=== PATIENT | male | born 1985 | race Caucasian/White ===

== ENCOUNTER 2024-07-03 10:31 | Inpatient (IN) ==
[2024-07-03 12:12] LABS: INR 1.11 (0.85-1.14)
[2024-07-03 12:20] LABS: Albumin 3.9 g/dL (3.5-5.7); Albumin/Globulin Ratio 1.3 (1-3); Calcium 8.8 mg/dL (8.6-10.3); Creatinine, Serum 0.81 mg/dL (0.67-1.17); Globulin 2.9 g/dL (2-4); Potassium 3.8 mmol/L (3.5-5.0); Total Bilirubin 0.7 mg/dL (0.2-1.0); Total Protein 6.8 g/dL (6.4-8.9); eGFR CKD-EPI 116.5 (>60)
[2024-07-03 12:39] LABS: Mean Corpuscular Hemoglobin 30.8 pg (27-33); Mean Corpuscular Hgb Conc 35.2 g/dL (31-36); Mean Corpuscular Volume 87.6 fL (80-97); Red Blood Count 4.56 10^6/uL (4.06-5.63); Red Cell Distribution Width 13.4 % (12-17); White Blood Count 11.6 10^3/uL (3.6-10.2)
[2024-07-03 13:03] LABS: ABS Basophils 0.1 10^3/uL (0.0-0.1); ABS Eosinophils 0.4 10^3/uL (0.0-0.5); ABS Lymphocytes 2.1 10^3/uL (1.0-4.8); ABS Monocytes 0.8 10^3/uL (0.0-1.1); ABS Neutrophils 8.1 10^3/uL (1.5-7.6); Eosinophil % 3.4 %; Large Platelets Present; Lymphocyte % 18.1 %; Mean Platelet Volume 7.6 fL (7.5-11.2); Platelet Count 357 10^3/uL (150-450)
[2024-07-03 13:29] LABS: High Sensitivity Troponin 1 Hr 6 pg/mL (<20)
[2024-07-03] MEDS ORDERED: Senna TAB 8.6 mg TAB PO PRN (14:10)
[2024-07-03] MEDS: Iohexol 350 (CONTRAST) 500 ML MDV IV ONE (14:37)
[2024-07-03] MEDS: Albuterol/Ipratropium NEB.SOL (2.5/0.5 MG) 3 ML NEB.SOLN INH SCH (15:09)
[2024-07-03] MEDS: cefTRIAXone 1 gm/50 mL D5W 1 GM/50 ML BAG IV SCH (15:57)
[2024-07-03] MEDS: Lactated Ringers 1000 ml BAG 1,000 ML IV SCH ×2 (16:44→16:47)
[2024-07-03] MEDS: Enoxaparin 40 MG/0.4 ML SYR SUBCUT SCH (16:48)
[2024-07-03] MEDS: Famotidine IV 10 MG/ML 2 ml VIAL (20 mg) IV SLOW PU ONE (16:48)
[2024-07-03] MEDS: Nicotine PATCH 14 MG/24 HR PATCH TRANSDERM SCH (16:49)
[2024-07-03] MEDS: Nicotine GUM 2MG FRUIT FLAVOR PO PRN (17:02)
[2024-07-03] MEDS: Azithromycin 500 mg/250 ml NS 500 MG/250 ML BAG IVPB SCH (18:00)
[2024-07-03 18:02] LABS: C Reactive Protein 22.25 mg/L (<8.01)
[2024-07-04 06:23] LABS: Calcium 8.4 mg/dL (8.6-10.3); Creatinine, Serum 0.79 mg/dL (0.67-1.17); Magnesium 2.3 mg/dL (1.9-2.7); Potassium 3.9 mmol/L (3.5-5.0); eGFR CKD-EPI 117.3 (>60)
[2024-07-04 06:40] LABS: ABS Basophils 0.2 10^3/uL (0.0-0.1); ABS Eosinophils 0.1 10^3/uL (0.0-0.5); ABS Lymphocytes 2.3 10^3/uL (1.0-4.8); ABS Monocytes 0.9 10^3/uL (0.0-1.1); ABS Neutrophils 8.6 10^3/uL (1.5-7.6); ABS Nucleated RBC 0.02 10^3/ul; Eosinophil % 1.1 %; Hematocrit 36.9 % (38-53); Lymphocyte % 18.6 %; Mean Corpuscular Hemoglobin 31.1 pg (27-33); Mean Corpuscular Hgb Conc 35.3 g/dL (31-36); Mean Corpuscular Volume 88.1 fL (80-97); Mean Platelet Volume 7.6 fL (7.5-11.2); Nucleated Red Blood Cells % 0.2 %/100WBC (0.0-0.8); Platelet Count 329 10^3/uL (150-450); Red Blood Count 4.19 10^6/uL (4.06-5.63); Red Cell Distribution Width 13.7 % (12-17); White Blood Count 12.1 10^3/uL (3.6-10.2)
[2024-07-04] MEDS: Potassium Chlor 10 meq TAB PO ONE (08:45)
[2024-07-05 05:53] LABS: Creatinine, Serum 0.9 mg/dL (0.67-1.17); Magnesium 2.2 mg/dL (1.9-2.7); Potassium 4.3 mmol/L (3.5-5.0); eGFR CKD-EPI 112.8 (>60)
[2024-07-05 06:17] LABS: ABS Basophils 0.1 10^3/uL (0.0-0.1); ABS Eosinophils 0.2 10^3/uL (0.0-0.5); ABS Lymphocytes 3.6 10^3/uL (1.0-4.8); ABS Monocytes 0.8 10^3/uL (0.0-1.1); ABS Neutrophils 8.1 10^3/uL (1.5-7.6); ABS Nucleated RBC 0.01 10^3/ul; Eosinophil % 1.7 %; Hematocrit 39.1 % (38-53); Hemoglobin 13.6 g/dL (13.2-16.3); Lymphocyte % 28.4 %; Mean Corpuscular Hemoglobin 31.2 pg (27-33); Mean Corpuscular Hgb Conc 34.9 g/dL (31-36); Mean Corpuscular Volume 89.4 fL (80-97); Mean Platelet Volume 7.5 fL (7.5-11.2); Nucleated Red Blood Cells % 0.1 %/100WBC (0.0-0.8); Platelet Count 349 10^3/uL (150-450); Red Blood Count 4.37 10^6/uL (4.06-5.63); Red Cell Distribution Width 13.5 % (12-17); White Blood Count 12.8 10^3/uL (3.6-10.2)
[2024-07-05] MEDS: Albuterol/Ipratropium NEB.SOL (2.5/0.5 MG) 3 ML NEB.SOLN INH SCH (06:53)
[2024-07-05] MEDS ORDERED: Polyethylene Glycol 3350 17 GM PACKET PO PRN (16:18)
[2024-07-06 09:52] VITALS: BP 116/72
== END 2024-07-06 12:35 | disposition home or self-care (01) | DRG 720 ==
LOC: ED 10:31 → EDHOLD 10:31 → MEDTELE 14:52
PROVIDERS: ADMIT Student in an Organized Health Care Education/Training Program; ATTEND Student in an Organized Health Care Education/Training Program